=== PATIENT | male | born 1995 | race Asian ===

== ENCOUNTER 2025-01-08 23:34 | Emergency (ER) | payer SELFPAY ==
[~2025-01-08] VITALS: Ht 167.6 cm; Wt 78.0 kg
[2025-01-08 23:55] VITALS: O2SAT 98
[2025-01-09] MEDS: DIPHENHYDRAMINE 25MG CAPSULE PO ONE (00:20)
[2025-01-09] MEDS: DEXAMETHASONE 4MG/ML 1ML VIAL IM ONE (01:00)
[2025-01-09] MEDS ORDERED: PRED10TA23 MT (01:36)
[2025-01-09] MEDS ORDERED: EPIN0.3P3 IM (01:36)
[2025-01-09 02:20] VITALS: BP 137/90; PULSE 92; RESP 18; TEMP 36.7; O2SAT 98
== END 2025-01-09 02:30 | disposition home or self-care (01) ==
LOC: ER 23:34
DX: R21 Rash and other nonspecific skin eruption (principal)
CPT/HCPCS: 99283; 96372; Q0163; J1100